=== PATIENT | male | born 1990 | race Caucasian/White ===

== ENCOUNTER 2018-10-04 03:10 | Emergency (ER) | payer OTHER ==
[~2018-10-04] VITALS: Ht 182.9 cm; Wt 115.7 kg
[2018-10-04] MEDS ORDERED: LIDOCAINE 1% INJ 20 ML 20 ML VIAL ONE (03:37)
--- NOTE | 2018-10-04 03:48 | ED Fall/Injury ---
General Chief Complaint: Laceration Stated Complaint: FELL OFF TRUCK HIT HEAD AT WORK Source: patient, other Exam Limitations: no limitations History of Present Illness Date Seen by Provider: October 04, 2018 Time Seen by Provider: 03:35 Initial Comments Patient presents to ER by private conveyance with chief complaint that he was at work at 1:30 fell off the trailer and struck the cab of the truck against the right parietal scalp causing a small 2 cm laceration to the subcutaneous tissue of his scalp. He fell into a muddy puddle. He is up-to-date on his tetanus shot. No other significant medical problems and does not take any medicines. As he fell he also felt that he twisted his left ankle is having some pain in his medial malleolus. He was immediately able to bear weight and still is able to walk in. He has not taken anything for the pain. Allergies and Home Medications Allergies Coded Allergies: No Known Drug Allergies (Unverified , 10/04/18) Home Medications Sulfamethoxazole/Trimethoprim 1 Each Tablet, 1 EACH PO BID Prescribed by: SOFIYA THOMAS on 10/04/18 0400 Patient Home Medication List Home Medication List Reviewed: Yes Review of Systems Review of Systems Constitutional: No chills, No diaphoresis Eyes: Denies Blindness, Denies Blurred Vision, Denies Drainage Ears, Nose, Mouth, Throat: denies ear pain, denies ear discharge Respiratory: No cough, No dyspnea on exertion Cardiovascular: No chest pain, No palpitations Gastrointestinal: No abdominal pain, No nausea Genitourinary: No discharge, No dysuria Past Qijbuil-Libqrf-Uezyjk Hx Patient Social History Alcohol Use: Denies Use Recreational Drug Use: No Smoking Status: Never a Smoker Recent Foreign Travel: No Contact w/Someone Who Travel: No Physical Exam Vital Signs Vital Signs - First Documented 10/04/18 03:27 Temp 97.2 Pulse 81 Resp 18 B/P (MAP) 142/85 (104) Pulse Ox 95 O2 Delivery Room Air Capillary Refill : Height, Weight, BMI Height: '" Weight: lbs. oz. kg; BMI Method: General Appearance: WD/WN, no apparent distress HEENT: PERRL/EOMI, normal ENT inspection, TMs normal, pharynx normal, other (negative for hemotympanum, giraldo sign or raccoon eyes. Right parietal scalp has a 2 cm linear subcutaneous laceration without foreign debris noted. A few superficial abrasions inferior to this laceration.) Neck: non-tender, full range of motion, supple, normal inspection Cardiovascular: normal peripheral pulses, regular rate, rhythm Respiratory: lungs clear, normal breath sounds, no respiratory distress, no accessory muscle use Peripheral Pulses: 2+ Dorsalis Pedis (R), 2+ Left Dors-Pedis (L) Extremities: normal range of motion, normal inspection, no pedal edema, no calf tenderness, normal capillary refill, other (posterior medial malleolus tender to palpation.) Neurologic/Psychiatric: regulatory associate II-XII nml as tested, no motor/sensory deficits, alert, normal mood/affect, oriented x 3 [place] Coma Score Best Eye Response: (4) Open Spontaneously Best Verbal Response: (5) Oriented Best Motor Response: (6) Obeys Commands [place] Total: 15 Procedures/Interventions Wound Location: Scalp Other Wound Location Right parietal Wound Length (cm): 2.5 Wound's Depth, Shape: linear, sub Q Wound Explored: contaminated Irrigated w/ Saline (ccs): 50 Betadine Prep?: Yes (chlorhexidine) Anesthesia: 1% Lidocaine (3) Volume Anesthetic (ccs): 3 Wound Debrided: minimal Staple Repair: Stapler Skin Precise Number of Sutures: 6 Progress After the wound was thoroughly cleaned multiple times and infiltrated with 3 cc of 1% lidocaine without epinephrine we then soaked with chlorhexidine and Betadine. Closed the wound using gurdeep. We'll put him on antibiotics. Progress/Results/Core Measures Results/Orders My Orders Orders - SOFIYA THOMAS Lidocaine 1% Inj 20 Ml (Xylocaine 1% Inj (10/04/18 03:37) Ankle 3 View Left (10/04/18 03:48) Lidocaine 1% Inj 20 Ml (Xylocaine 1% Inj (10/04/18 04:00) Medications Given in ED Current Medications Medications Dose Ordered Sig/Fabian Route Start Time Stop Time Status Last Admin Dose Admin Lidocaine HCl 20 ml ONCE ONCE INJ 10/04/18 04:00 10/04/18 04:01 DC 10/04/18 03:30 20 ML Vital Signs/I&O 10/04/18 03:27 Temp 97.2 Pulse 81 Resp 18 B/P (MAP) 142/85 (104) Pulse Ox 95 O2 Delivery Room Air Progress Progress Note : Time: 03:51 Progress Note Fell from a trailer and struck the truck of the trailer was hooked onto. The wound was probably contaminated by the mud that he fell into. We have thoroughly cleaned out using chlorhexidine soap water and then flushed it with 50 cc of sterile saline. No foreign debris was plucked out. He has already washed the wound with tap water. Plan to put him on a couple days of preventative antibiotics, clean the wound, put some gurdeep in it after using lidocaine. Plain film of the left ankle. We discussed risks, benefits and alternatives to doing a CT of the head and neck. He is nontender. We offered observation versus CT and after discussing the risks he prefers to do the observation. Diagnostic Imaging Diagonstic Imaging: Xray Plain Films/CT/US/NM/MRI: ankle (left) Comments No acute osseous abnormality. Joint spaces are maintained. Reviewed: Reviewed by Me Departure Impression Primary Impression: Fall Qualified Codes: W19.XXXA - Unspecified fall, initial encounter Additional Impressions: Concussion Qualified Codes: S06.0X0A - Concussion without loss of consciousness, initial encounter Laceration of scalp Qualified Codes: S01.01XA - Laceration without foreign body of scalp, initial encounter Abrasion, scalp w/o infection Left ankle sprain Qualified Codes: S93.402A - Sprain of unspecified ligament of left ankle, initial encounter Disposition: 01 HOME, SELF-CARE Condition: Improved Departure-Patient Inst. Decision time for Depature: 04:15 Referrals: YANIRA FREED MD (PCP/Family) Primary Care Physician Patient Instructions: Concussion in Adults, HEAD [id number] WAKE-UP, Laceration Repair With [place] (DC) Add. Discharge Instructions: Take the Bactrim twice a day with food for the next 3 days. Keep the wound clean with regular soap and water or shampoo. You can put a thin dollop of Vaseline over it and keep it clean and dry. Return to the ER in 7-10 days to have the gurdeep removed. If you develop fever chills nausea vomiting, discharge or uncontrollable bleeding from the wound and you can return sooner. It's okay to sleep but if you begin to have any neurologic symptoms of weakness, confusion, numbness, tingling or other unexpected symptoms before 1 PM, 10/04/18 then you should return to the nearest ER for further evaluation. You may experience concussion symptoms for the next few days if you overdo activity such as headache, nausea, blurry vision, sleepiness. The symptoms can be helped by just getting some sleep and turn your brain off for a day. Tylenol and Motrin can be helpful. For your ankle sprain an Des bandage for compression as well as elevating the ankle above the level of your heart when not in use can be helpful. Ice pack every 4 hours for the first couple days. Follow-up with your primary care doctor if you are still having significant pain or swelling in 7-10 days in your left ankle. All discharge instructions reviewed with patient and/or family. Voiced understanding. Scripts Sulfamethoxazole/Trimethoprim (Bactrim Ds Tablet) 1 Each Tablet 1 EACH PO BID for 3 Days, #6 TAB 0 Refills Prov: SOFIYA THOMAS 10/04/18 Work/School Note: Work Release Form Date Seen in the Emergency Department: October 04, 2018 Return to Work: October 04, 2018 Restrictions: No Restrictions SOFIYA THOMAS October 04, 2018 03:48
[2018-10-04] MEDS ORDERED: SULF1TAB35 PO (04:00)
[2018-10-04] MEDS ORDERED: LIDOCAINE 1% INJ 20 ML 20 ML VIAL INJ ONE (04:00)
--- NOTE | 2018-10-04 04:04 | NUR ---
Patient given 6 gurdeep
[2018-10-04 04:34] VITALS: BP 142/85
--- NOTE | 2018-10-04 06:52 | Diagnostic Imaging Report ---
INDICATION: Fall, pain. FINDINGS: Medial, lateral and posterior malleoli appeared intact. There does appear to be some soft tissue swelling about the ankle laterally. The articular surfaces appeared smooth and intact. An area of cortical calcification posterolateral aspect distal tibial metadiaphysis as a chronic finding noted. A fracture cannot be identified. IMPRESSION: Swelling but no fracture or disruption of the mortise radiographically apparent. Dictated by: Dictated on workstation # [id number]
== END 2018-10-04 04:31 | disposition home or self-care (01) ==
LOC: ER FS 03:13
DX: S06.0X0A Concussion without loss of consciousness, initial encounter (principal); S01.01XA Laceration without foreign body of scalp, initial encounter; S93.402A Sprain of unspecified ligament of left ankle, initial encounter; R40.2142 Coma scale, eyes open, spontaneous, at arrival to emergency department; R40.2252 Coma scale, best verbal response, oriented, at arrival to emergency department; R40.2362 Coma scale, best motor response, obeys commands, at arrival to emergency department; V84.9XXA Unspecified occupant of special agricultural vehicle injured in nontraffic accident, initial encounter; X50.1XXA Overexertion from prolonged static or awkward postures, initial encounter; Y92.59 Other trade areas as the place of occurrence of the external cause; Y99.0 Civilian activity done for income or pay
CPT/HCPCS: 12001; 73610